=== PATIENT | male | born 1970 | race Hispanic/Latino ===

== ENCOUNTER 2023-10-28 17:49 | Observation (INO) | payer OTHER ==
[~2023-10-28] VITALS: Ht 167.6 cm; Wt 74.4 kg
[2023-10-28 18:42] VITALS: TEMP 98.3
[2023-10-28] MEDS ORDERED: METFORMIN HCL500 M2 PO (19:14)
[2023-10-28] MEDS ORDERED: LOTREL 5-20 MG1 EACH (19:14)
[2023-10-28] MEDS: SODIUM CHLORIDE 0.9% 1000ML 1,000 ML IV STA (19:41)
[2023-10-28] MEDS: INSULIN LISPRO 100 UNIT/1 ML 3ML VIAL SQ SCH (21:00)
[2023-10-28] MEDS ORDERED: SODIUM CHLORIDE FLUSH 10 ML SYR INJ PRN (21:00)
[2023-10-28] MEDS ORDERED: DEXTROSE 50% SYRINGE 50 ML IV PRN (21:00)
[2023-10-28] MEDS ORDERED: ONDANSETRON HCL INJ 2MG/ML 2ML 2 MG/ML VIAL IV PRN (21:00)
[2023-10-28] MEDS: HYDRALAZINE HCL 20 MG/ML VIAL IV STA (21:04)
[2023-10-28 22:26] VITALS: PULSE 66; RESP 18
[2023-10-28] MEDS ORDERED: HYDRALAZINE HCL 20 MG/ML VIAL IV PRN (22:30)
[2023-10-28 23:00] VITALS: BP_SYST 130; BP_SYST 168; BP_DIAS 64; BP_DIAS 84; PULSE 69; RESP 18; TEMP 97.6; O2SAT 100
[2023-10-29 00:21] VITALS: BP 168/84; PULSE 69; RESP 18; TEMP 97.6; O2SAT 100
[2023-10-29] MEDS: ASPIRIN 81 MG CHEW TAB PO ONE (01:10)
[2023-10-29 04:00] VITALS: BP 135/79; PULSE 70; RESP 17; TEMP 98.1; O2SAT 100
[2023-10-29 05:21] LABS: BASOPHILS % 0.5 % (0.0-1.0); EOSINOPHILS # (AUTO) 0.1 (0.0-0.4); EOSINOPHILS % 1.5 % (0.0-6.0); HEMATOCRIT 36.6 % (38.2-49.6); HEMOGLOBIN 12.4 g/dL (14.0-18.0); LYMPHOCYTES # (AUTO) 1.5 (1.0-3.2); LYMPHOCYTES % 25.1 % (18.0-39.1); MEAN CORPUSCULAR HGB CONC 33.9 g/dL (31-35); MEAN CORPUSCULAR VOLUME 88.6 fL (81-99); MONOCYTES # (AUTO) 0.7 (0.2-0.8); MONOCYTES % 10.7 % (4.4-11.3); NEUTROPHILS # (AUTO) 3.8 (2.1-6.9); NEUTROPHILS % 61.9 % (38.7-80.0); PLATELET COUNT 197 x10e3/uL (140-360); RED BLOOD COUNT 4.13 x10e6/uL (4.3-5.7); RED CELL DISTRIBUTION WIDTH 13.2 % (11.7-14.4); WHITE BLOOD COUNT 6.09 x10e3/uL (4.8-10.8)
[2023-10-29 05:36] LABS: ANION GAP 14.1 mmol/L (8-16); CALCIUM 9.3 mg/dL (8.4-10.2); CHOL/HDL RATIO 4.2 (3.9-4.7); CREATININE, SERUM 1.11 mg/dL (0.72-1.25); POTASSIUM 4.1 mmol/L (3.5-5.1)
[2023-10-29 05:45] LABS: TROPONIN I 0.014 ng/mL (0-0.300)
[2023-10-29 08:06] VITALS: BP 143/87; PULSE 69; RESP 17; TEMP 97.7; O2SAT 98
[2023-10-29] MEDS: METFORMIN HCL 500 MG TAB CR PO SCH (08:42)
[2023-10-29] MEDS: AMLODIPINE BESYLATE 5 MG TAB PO SCH (08:42)
[2023-10-29] MEDS: BENAZEPRIL HCL 10 MG TAB PO SCH (08:43)
[2023-10-29 08:45] VITALS: BP 143/87; PULSE 69; RESP 17; TEMP 97.7; O2SAT 98
[2023-10-29 11:55] VITALS: BP 140/83; PULSE 74; RESP 17; TEMP 97.8; O2SAT 94
[2023-10-29 15:49] VITALS: BP 144/87; PULSE 72; RESP 17; TEMP 97.8; O2SAT 99
[2023-10-29] MEDS ORDERED: LOTREL 5-20 MG1 EACH PO (16:31)
== END 2023-10-29 17:00 | disposition home or self-care (01) ==
LOC: FSED 18:07 → ERHOLD 21:04 → MED/SURG2 22:57
PROVIDERS: ADMIT Internal Medicine; ATTEND Internal Medicine
DX: I16.0 Hypertensive urgency (principal); I10 Essential (primary) hypertension; E11.65 Type 2 diabetes mellitus with hyperglycemia; Z79.84 Long term (current) use of oral hypoglycemic drugs; H53.8 Other visual disturbances; R42 Dizziness and giddiness; Z79.899 Other long term (current) drug therapy
CPT/HCPCS: 36415; 70450; 80048 ×2; 80061; 80076; 81003; 82550; 82553; 82948; 84484 ×2; 85025 ×2; 93005; 99284; G0378 ×2; J0360; J7030